=== PATIENT | male | born 1945 | race Caucasian/White ===

== ENCOUNTER 2020-03-16 21:58 | Emergency (ER) | payer OTHER ==
--- NOTE | 2020-03-16 23:15 | ED Physician Documentation ---
PD HPI OPHTHO - Stated complaint Stated Complaint: EYE PX - Chief complaint Chief Complaint: Heent - History obtained from History obtained from: Patient - History of Present Illness Timing - onset: Yesterday Timing - details: Gradual onset Pain level now: 8 Location: Left Quality / character: Itching, Aching, Throbbing Associated symptoms: Redness, Swelling, Tearing, Discharge, Matting, FB sensation. No: Double vision, Decreased vision, Loss of vision Contributing factors: No: Exposed to conjunctivitis, Recent URI, FB, UV light (welding etc), Wears glasses, Wears contacts Similar symptoms before: Has not had sx before Recently seen: Clinic - Additional information Additional information: left eye felt "scratchy" (per patient) yesterday. no known injury, has not had this symptom before. He was evaluated earlier today by ophthalmology (Dr. Pierson at [place]) and diagnosed with corneal abrasion, given rx for abx. drops and a shielding contact lens was placed. Patient presents at this time due to increasing left eye pain, photophobia, as well as swelling and pain around the left eye. He also has had left eye discharge and matting Review of Systems Constitutional: denies: Fever, Chills, Sweats Eyes: reports: Photophobia, Discharge, Irritation. denies: Loss of vision, Decreased vision Nose: reports: Sinus pressure / pain (left-sided) PD PAST MEDICAL HISTORY - Past Medical History Past Medical History: Yes Cardiovascular: High cholesterol Endocrine/Autoimmune: Type 2 diabetes - Present Medications Home Medications: Ambulatory Orders Medication Instructions Recorded Confirmed Amox/Clav 875/125 [Augmentin] 1 each PO Q12H #14 tablet 03/17/20 Oxycodone HCl/Acetaminophen 1 - 2 each PO Q6H PRN #14 tablet 03/17/20 [Percocet 5-325 mg Tablet] - Allergies Allergies/Adverse Reactions: Allergies Allergy/AdvReac Type Severity Reaction Status Date / Time No Known Drug Allergies Allergy Verified 03/16/20 22:04 PD ED PE NORMAL - Vitals Vital signs reviewed: Yes - General General: Alert and oriented X 3, Well developed/nourished, Other (appears to be in painful distress, uncomfortable) - HEENT HEENT: PERRL, EOMI PD ED PE EXPANDED - HEENT HEENT Visual: 1 - abrasion (fluorescein uptake) - Eyes Eyes: Visual acuity - see nn, Left eye, Eyelid swelling (mild/moderate left eyelid swelling, upper > lower, with faint and poorly marginated erythema), Injected conj/sclera, Exudate (scant left eye thick purulent exudate), Corneal abrasion, Fluorescein uptake, Anterior chambers clear, Other (left eye examined under slit lamp). No: Corneal FB Results - Vitals Vitals: Oxygen O2 Source Room air - Labs Labs: Laboratory Tests 03/17/20 03/17/20 02:20 02:20 WBC 11.2 H RBC 4.82 Hgb 13.9 L Hct 41.1 L MCV 85.3 MCH 28.8 MCHC 33.8 RDW 13.2 Plt Count 174 MPV 12.0 H Neut # (Auto) 8.8 H Lymph # (Auto) 1.7 [place] # (Auto) 0.7 Eos # (Auto) 0.0 Baso # (Auto) 0.0 Absolute Nucleated RBC 0.00 Nucleated RBC % 0.0 Sodium 136 Potassium 3.7 Chloride 106 Carbon Dioxide 19 L Anion Gap 11.0 BUN 15 Creatinine 0.9 Estimated GFR (MDRD) 83 L Glucose 174 H Calcium 9.2 PD MEDICAL DECISION MAKING - ED course Complexity details: reviewed results, re-evaluated patient, considered differential, d/w patient ED course: patient has printed sheets from his ophthalmology visit and these indicate IOP of 24 (OD) and 29 (OS) (measured with [facility]). In ED tonight, left eye IOP measured by me with i[employer] was 23. Departure - Departure Disposition: 01 Home, Self Care Clinical Impression: Periorbital cellulitis of left eye Corneal abrasion Qualifiers: Encounter type: initial encounter Laterality: left Qualified Code(s): S05.02XA - Injury of conjunctiva and corneal abrasion without foreign body, left eye, initial encounter Condition: Good Instructions: ED Eye Injury Corneal Abrasion, ED Cellulitis Angela Orbital Follow-Up: Samuel Galvan MD [Primary Care Provider] - Prescriptions: Amox/Clav 875/125 [Augmentin] 1 each PO Q12H #14 tablet Oxycodone HCl/Acetaminophen [Percocet 5-325 mg Tablet] 1 - 2 each PO Q6H PRN #14 tablet PRN Reason: pain Comments: Follow up with your manager battery today as scheduled. Discharge Date/Time: 03/17/20 04:50
[2020-03-16] MEDS ORDERED: PROPARACAINE 0.5% OPHTH DROPS 15 ML LEFTEYE STA (23:26)
[2020-03-17 02:24] LABS: BASOPHILS % (AUTO) 0.3 %; EOSINOPHILS % (AUTO) 0.3 %; HGB - HEMOGLOBIN 13.9 g/dL (14.0-18.0); LYMPHOCYTES # (AUTO) 1.7 10^3/uL (1.5-3.5); LYMPHOCYTES % (AUTO) 14.8 %; MEAN CORPUSCULAR HEMOGLOBIN 28.8 pg (27.0-31.0); MEAN CORPUSCULAR HGB CONC 33.8 g/dL (32.0-36.0); MEAN CORPUSCULAR VOLUME 85.3 fL (80.0-94.0); MONOCYTES # (AUTO) 0.7 10^3/uL (0.0-1.0); MONOCYTES % (AUTO) 6.1 %; NEUTROPHILS # (AUTO) 8.8 10^3/uL (1.5-6.6); NEUTROPHILS % (AUTO) 78.2 %; PLT - PLATELET COUNT 174 10^3/uL (130-450); RED BLOOD COUNT 4.82 10^6/uL (4.70-6.10); RED CELL DISTRIBUTION WIDTH 13.2 % (12.0-15.0); WHITE BLOOD COUNT 11.2 x10^3/uL (4.8-10.8)
[2020-03-17 02:33] LABS: CALCIUM 9.2 mg/dL (8.5-10.3); CREATININE 0.9 mg/dL (0.6-1.2)
[2020-03-17] MEDS ORDERED: IOVERSOL 320 100 ML VIAL IVP ONE ×2 (02:33→03:19)
[2020-03-17 02:40] VITALS: BP 153/90
--- NOTE | 2020-03-17 03:56 | CT Report ---
Reason: left eye pain, swelling Procedure Date: 03/17/2020 Accession Number: [id number] / [id number] Procedure: CT - ORBITS W CPT Code: Final Report FULL RESULT: EXAM: CT ORBITS WITH CONTRAST EXAM DATE: 03/17/2020 03:14 AM. CLINICAL HISTORY: Left eye pain, swelling. COMPARISONS: None. TECHNIQUE: Thin-section axial images were acquired of the face after administration of intravenous contrast. Post-processing: Coronal and sagittal reformats. Other: None. IV contrast: OPTIRAY 320. In accordance with CT protocol optimization, one or more of the following dose reduction techniques were utilized for this exam: automated exposure control, adjustment of mA and/or KV based on patient size, or use of iterative reconstructive technique. FINDINGS: Soft Tissue: No abnormal inflammation or fluid collection. No soft tissue mass. The infratemporal fossa and parapharyngeal spaces are unremarkable. Orbits: Mild soft tissue swelling over the left orbit. Intraorbital contents appear unremarkable bilaterally. Bilateral lens extraction surgery. Bones: No fracture or bone lesion. Temporomandibular Joints: The temporomandibular joints are symmetric and normally located. Sinuses: Moderate mucosal thickening within the left maxillary antrum floor. Trace fluid within. Mild thickening right maxillary antrum floor. Other paranasal sinuses and mastoids appear unremarkable. No mucosal thickening or fluid levels. Glands: The visualized parotid glands appear unremarkable. Other: Visualized intracranial contents show no significant abnormality. IMPRESSION: 1. Mild swelling over the left orbit. 2. Bilateral lens extraction surgery. Intraorbital contents otherwise unremarkable. RADIA
[2020-03-17] MEDS ORDERED: AMOX/CLAV 875 MG/125 MG TABLET PO STA (04:39)
[2020-03-17] MEDS ORDERED: oxyCODONE 5 MG TABLET PO STA (04:39)
== END 2020-03-17 04:50 | disposition home or self-care (01) ==
LOC: ED 21:58
DX: L03.213 Periorbital cellulitis (principal); S05.02XA Injury of conjunctiva and corneal abrasion without foreign body, left eye, initial encounter; X58.XXXA Exposure to other specified factors, initial encounter; E11.9 Type 2 diabetes mellitus without complications
CPT/HCPCS: 36415; 70481; 80048; 85025; 99283; 99284; A9270; J3490; Q9967